=== PATIENT | male | born 1955 | race Caucasian/White ===

== ENCOUNTER 2019-02-09 08:11 | Day surgery (SDC) | payer BC ==
[~2019-02-09 08:11] MED LIST: Lactated Ringers 1,000 ML IV SCH; Lidocaine 1%/Sod Bicarbonate in NS 8.4% 1 ML Syringe IDERM PRN; Sodium Chloride 0.9% 10 ML Syringe FLUSH PRN
[2019-02-09] MEDS ORDERED: Triamcinolone Acetonide 40 MG/ML 1 ML MDV ONE (08:16)
[2019-02-09] MEDS ORDERED: Lidocaine 1% 30 ML SDV ONE (08:16)
--- NOTE | 2019-02-09 08:25 | PCM.PREANE ---
Preanesthetic Assessment - Anesthesia/Transfusion/Family Hx Anesthesia History: Prior Anesthesia Without Reaction Family History of Anesthesia Reaction: No Transfusion History: No Prior Transfusion(s) Intubation History: Unknown - Review of Systems General: No Symptoms Pulmonary: No Symptoms Cardiovascular: No Symptoms Gastrointestinal: No Symptoms Neurological: No Symptoms, Pre-Existing Deficit - Physical Assessment NPO Status Date: 02/08/19 NPO Status Time: 09:00 Height: 1.8 m Weight: 100.244 kg ASA Class: 2 Mental Status: Alert & Oriented x3 Airway Class: Mallampati = 3 Dentition: Reports: Missing Tooth/Teeth ROM/Head Extension: Full Lungs: Clear to Auscultation, Normal Respiratory Effort Cardiovascular: Regular Rate, Regular Rhythm, No Murmurs - Lab Values: Laboratory Last Values MRSA (PCR) Negative 01/20/19 10:14 - Allergies Allergies/Adverse Reactions: Allergies Allergy/AdvReac Type Severity Reaction Status Date / Time No Known Allergies Allergy Verified 10/04/15 18:32 - Blood Blood Available: No Product(s) Available: None - Anesthesia Plan Pre-Op Medication Ordered: None - Acknowledgements Anesthesia Type Planned: MAC Pt an Appropriate Candidate for the Planned Anesthesia: Yes Alternatives and Risks of Anesthesia Discussed w Pt/Guardian: Yes Pt/Guardian Understands and Agrees with Anesthesia Plan: Yes PreAnesthesia Questionnaire HEENT History: Reports: None Cardiovascular History: Reports: High Cholesterol, Other (See Below) Other Cardiovascular History: palpitations, orthostatic hypotension Respiratory History: Reports: Bronchitis, Recurrent Gastrointestinal History: Reports: None Genitourinary History: Reports: Renal Calculus SPECIAL EDUCATION ASSOCIATE History: Reports: None Musculoskeletal History: Reports: Arthritis, Other (See Below) Other Musculoskeletal History: carpal tunnel syndrome, elbow pain, lateral epicondylitis Neurological History: Reports: Other (See Below) Other Neuro History: dizziness Psychiatric History: Reports: None Endocrine/Metabolic History: Reports: Vitamin D Deficiency Hematologic History: Reports: None Immunologic History: Reports: None Oncologic (Cancer) History: Reports: None Dermatologic History: Reports: Other (See Below) Other Dermatologic History: lump in neck - Past Surgical History Head Surgeries/Procedures: Reports: None HEENT Surgical History: Reports: None Respiratory Surgical History: Reports: None GI Surgical History: Reports: None Female Surgical History: Reports: None Male Surgical History: Reports: None Endocrine Surgical History: Reports: None Musculoskeletal Surgical History: Reports: Arthroscopic Knee, Arthroscopic Procedure Oncologic Surgical History: Reports: None Dermatological Surgical History: Reports: None - SUBSTANCE USE Smoking Status *Q: Current Every Day Smoker Tobacco Use Within Last Twelve Months: Snuff/Dip Recreational Drug Use History: No - HOME MEDS Home Medications: Home Meds Ketorolac [Toradol] 10 mg PO Q8H #9 tablet 10/04/15 [Rx] Ondansetron [Zofran ODT] 4 mg PO Q6H PRN #10 tab.dis 10/04/15 [Rx] Tamsulosin [Flomax] 0.4 mg PO ONETIME #7 cap.er 10/04/15 [Rx] oxyCODONE HCl/Acetaminophen [Percocet 5-325 mg Tablet] 1 - 2 each PO Q6H #20 tablet 10/04/15 [Rx] - CURRENT (IN HOUSE) MEDS Current Meds: Current Medications Lactated Ringer's (Ringers, Lactated) 1,000 mls @ 125 mls/hr IV ASDIRECTED JOSE JUAN Stop: 02/09/19 23:00 Lidocaine/Sodium Bicarbonate (Buffered Lidocaine 1% In Ns 8.4%) 0.25 ml IDERM ONETIME PRN PRN Reason: Prior to IV Start Stop: 02/09/19 23:00 Sodium Chloride (Saline Flush) 10 ml FLUSH ASDIRECTED PRN PRN Reason: Keep Vein Open Stop: 02/09/19 23:00 Discontinued Medications Bupivacaine HCl (Sensorcaine-Mpf 0.25%) Confirm Administered Dose 20 ml .ROUTE .STK-MED ONE Stop: 02/09/19 08:17 Lidocaine HCl (Xylocaine-Mpf 1%) Confirm Administered Dose 30 ml .ROUTE .STK- MED ONE Stop: 02/09/19 08:17 Triamcinolone Acetonide (Kenalog-40) Confirm Administered Dose 40 mg .ROUTE .STK -MED ONE Stop: 02/09/19 08:17
[2019-02-09] MEDS ORDERED: Midazolam 1 MG/ML 2 ML SDV ONE ×2 (08:51)
[2019-02-09] MEDS ORDERED: fentaNYL 100 MCG/2 ML SDV ONE (08:53)
[2019-02-09] MEDS ORDERED: Propofol 200 MG/20 ML SDV ONE (08:54)
[2019-02-09] MEDS: Bupivacaine 0.25% 10 ML SDV ONE ×2 (09:02→09:15)
[2019-02-09 09:04] VITALS: BP 120/80
--- NOTE | 2019-02-09 09:27 | PCM48HPAN ---
Post Anesthesia Note - EVALUATION WITHIN 48HRS OF ANESTHETIC Vital Signs in Normal Range: Yes Patient Participated in Evaluation: Yes Respiratory Function Stable: Yes Airway Patent: Yes Cardiovascular Function Stable: Yes Hydration Status Stable: Yes Pain Control Satisfactory: Yes Nausea and Vomiting Control Satisfactory: Yes Mental Status Recovered: Yes Resp Rate: 16
--- NOTE | 2019-02-09 09:27 | PCM.POSTAN ---
POST ANESTHESIA ASSESSMENT - MENTAL STATUS Mental Status: Alert - RESPIRATORY Respiratory Status: Respiratory Rate WNL, Airway Patent, O2 Saturation Stable, Supplemental Oxygen - CARDIOVASCULAR CV Status: Pulse Rate WNL, Blood Pressure Stable - GASTROINTESTINAL GI Status: No Symptoms - POST OP HYDRATION Hydration Status: Adequate & Stable
--- NOTE | 2019-02-13 17:07 | PCM.OPNOTE ---
- General Post-Op/Procedure Note Date of Surgery/Procedure: 02/09/19 Operative Procedure(s): left carpal tunnel release with right carpal tunnel injection Pre Op Diagnosis: bilateral median nerve compression neuropathy Post-Op Diagnosis: Same Anesthesia Technique: Local, MAC Primary Surgeon: Ryan Pickens Anesthesia Provider: David Ramirez Regional Sales Trainer: Yvetet Powers EBL in mLs: 5 Complications: None Condition: Good
--- NOTE | 2019-02-14 11:14 | OR ---
DATE OF OPERATION: 02/09/2019 SURGEON: Ryan Pickens MD OPERATION PERFORMED: Left carpal tunnel release with right carpal tunnel injection. PREOPERATIVE DIAGNOSIS: Bilateral median nerve compression neuropathy. POSTOPERATIVE DIAGNOSIS: Bilateral median nerve compression neuropathy. ANESTHESIA: Local MAC. ANESTHESIA PROVIDER: David Ramirez CRNA. [employer]BESTOS SIDING MECHANIC: Yvette Powers PA-C. ESTIMATED BLOOD LOSS: Less than 5 mL. COMPLICATIONS: None. CONDITION: Stable. DESCRIPTION OF PROCEDURE: The patient was identified in the preop holding area. Proper site was marked and identified by the surgeon. The patient was taken back to the operating theater where after adequate anesthesia, the patient's left upper extremity was sterilely prepped and draped in the usual sterile fashion. OR time-out was performed. The patient did not receive antibiotics and it is not indicated for soft tissue hand procedure. At this time, the left upper extremity was exsanguinated and an Esmarch was used as a tourniquet on the forearm. At this time, using 1% lidocaine without epinephrine and 0.25% Marcaine without epinephrine, the palmar cutaneous branch of the median nerve was anesthetized and then the incisional site was anesthetized using [place] cardinal line and ulnar border of the fourth digit as reference. Once this had set up, an incision was made. Blunt dissection was taken down to the palmar cutaneous fascia. Palmar cutaneous fascia was incised with a [place] blade. At this time, the transverse carpal ligament was identified. A small rent was made in the transverse carpal ligament with a [place] blade under direct visualization. Resection of the transverse carpal ligament was done distally using tenotomy scissors making sure to stop short of the palmar arch. At this time, attention was turned proximally after it was found to be adequately released. Using the tenotomy scissors keeping the tips ulnar to protect the palmar cutaneous branch of the median nerve, the superficial forearm fascia as well as the transverse carpal ligament were resected proximally. It was found to be adequate release both proximally and distally. At this time, adequate saline was irrigated through the wound. 4-0 nylon sutures were used closure of the skin. The patient was placed in a sterile soft dressing and sent to PACU in stable condition. After this was completed, under sterile technique, 1 mL of 40 mg of Kenalog and 2 mL of 0.25% Marcaine were injected at the right carpal tunnel. The patient tolerated both procedures well. TIESHA /[id number]
== END 2019-02-09 09:50 | disposition home or self-care (01) ==
LOC: JD.SDS 08:11
PROVIDERS: ATTEND Orthopaedic Surgery
DX: G56.03 Carpal tunnel syndrome, bilateral upper limbs (principal); E78.00 Pure hypercholesterolemia, unspecified; E78.5 Hyperlipidemia, unspecified; E55.9 Vitamin D deficiency, unspecified; R73.03 Prediabetes; R00.2 Palpitations; F17.220 Nicotine dependence, chewing tobacco, uncomplicated; Z87.442 Personal history of urinary calculi
CPT/HCPCS: 64721; 87641; J2001; J2250; J2704; J3010; J3301; J3490; J7120; 01810

== ENCOUNTER 2020-09-02 09:17 | Day surgery (SDC) | payer BC ==
--- NOTE | 2020-09-01 17:20 | PCM.PREANE ---
Preanesthetic Assessment - Procedure Proposed Procedure: Right CTR and Right knee steroid injection. - Anesthesia/Transfusion/Family Hx Anesthesia History: Prior Anesthesia Without Reaction Family History of Anesthesia Reaction: No Transfusion History: No Prior Transfusion(s) Intubation History: Unknown - Review of Systems General: No Symptoms Pulmonary: No Symptoms (Chew: yesterday @ 1900), Cough (dry cough) Cardiovascular: No Symptoms (Elevated cholesterol,) Gastrointestinal: No Symptoms (Gastritis) Neurological: No Symptoms, Numbness, Tingling (Right hand CTS) Other: Reports: Sinus Problem (seasonal allergies), Depression, Anxiety - Physical Assessment NPO Status Date: 09/01/20 NPO Status Time: 22:00 Vital Signs: HR:69 Sat:96% Temp:97 B/P:122/81 Resp:16 Height: 1.8 m Weight: 107.048 kg ASA Class: 2 Mental Status: Alert & Oriented x3 Airway Class: Mallampati = 2 Dentition: Reports: Normal Dentition, Broken Tooth/Teeth, Missing Tooth/Teeth, Caries Thyro-Mental Finger Breadths: 3 Mouth Opening Finger Breadths: 3 ROM/Head Extension: Full Lungs: Clear to Auscultation, Normal Respiratory Effort Cardiovascular: Regular Rate, Regular Rhythm, No Murmurs - Lab Values: Laboratory Last Values MRSA (PCR) Negative 08/29/20 10:10 All labs reviewed and noted and within acceptable ranges to proceed with scheduled procedure. - Allergies Allergies/Adverse Reactions: Allergies Allergy/AdvReac Type Severity Reaction Status Date / Time No Known Allergies Allergy Verified 08/30/20 14:07 - Anesthesia Plan Pre-Op Medication Ordered: None - Acknowledgements Anesthesia Type Planned: MAC Pt an Appropriate Candidate for the Planned Anesthesia: Yes Alternatives and Risks of Anesthesia Discussed w Pt/Guardian: Yes Pt/Guardian Understands and Agrees with Anesthesia Plan: Yes PreAnesthesia Questionnaire HEENT History: Reports: None Cardiovascular History: Reports: High Cholesterol Other Cardiovascular History: palpitations, orthostatic hypotension Respiratory History: Reports: None Gastrointestinal History: Reports: None, Gastritis Genitourinary History: Reports: Renal Calculus MEAT SPECIALIST History: Reports: None Musculoskeletal History: Reports: Arthritis, Other (See Below) Other Musculoskeletal History: carpal tunnel syndrome, elbow pain, lateral epicondylitis Neurological History: Reports: None Other Neuro History: dizziness Psychiatric History: Reports: None, Anxiety, Depression Endocrine/Metabolic History: Other Endocrine/Metabolic History: pre diabetic Hematologic History: Reports: None Other Hematologic History: vitamin d insufficiency Immunologic History: Reports: None Oncologic (Cancer) History: Reports: None Dermatologic History: Reports: Other (See Below) Other Dermatologic History: lump in neck - Past Surgical History Head Surgeries/Procedures: Reports: None HEENT Surgical History: Reports: None Respiratory Surgical History: Reports: None GI Surgical History: Reports: None Female Surgical History: Reports: None Male Surgical History: Reports: None Endocrine Surgical History: Reports: None Musculoskeletal Surgical History: Reports: Arthroscopic Procedure Oncologic Surgical History: Reports: None Dermatological Surgical History: Reports: None - SUBSTANCE USE Tobacco Use Status *Q: Never Tobacco User Recreational Drug Use History: No - HOME MEDS Home Medications: Home Meds Multivitamin [Daily Multiple Vitamin] 1 tab PO DAILY 02/09/19 [History] Simvastatin [Zocor] 40 mg PO BEDTIME 02/09/19 [History] Acetaminophen [Tylenol] 325 mg PO 08/30/20 [History] Acetaminophen/HYDROcodone [[place] 325-5 MG] 1 - 2 tab PO Q6H PRN #10 tablet 08/30/20 [Rx] Celecoxib 08/30/20 [History] Cholecalciferol (Vitamin D3) [Vitamin D3] 08/30/20 [History] Escitalopram Oxalate [Lexapro] 10 mg PO 08/30/20 [History] Omeprazole 40 mg PO 08/30/20 [History] - CURRENT (IN HOUSE) MEDS Current Meds: Current Medications Lactated Ringer's (Ringers, Lactated) 1,000 mls @ 125 mls/hr IV ASDIRECTED JOSE JUAN Stop: 09/02/20 23:00 Lidocaine/Sodium Bicarbonate (Buffered Lidocaine 1% In Ns 8.4%) 0.25 ml IDERM ONETIME PRN PRN Reason: Prior to IV Start Stop: 09/02/20 18:00 Sodium Chloride (Saline Flush) 10 ml FLUSH ASDIRECTED PRN PRN Reason: Keep Vein Open Stop: 09/02/20 18:00
[~2020-09-02 09:17] MED LIST changes: +Lidocaine 1% 4 ML ONE; +Ondansetron 4 MG/2 ML SDV ONE; +Propofol 200 MG/20 ML SDV ONE; +fentaNYL 100 MCG/2 ML SDV ONE
[2020-09-02] MEDS ORDERED: Triamcinolone Acetonide 40 MG/ML 1 ML SDV ONE (10:17)
[2020-09-02] MEDS ORDERED: Bupivacaine 0.25% 10 ML SDV ONE ×2 (10:18→11:43)
[2020-09-02] MEDS ORDERED: Lidocaine 1% 30 ML SDV ONE ×2 (10:18→11:43)
[2020-09-02] MEDS ORDERED: Lidocaine 1% 6 ML ONE (10:19)
[2020-09-02] MEDS ORDERED: diphenhydrAMINE 50 MG/ML SDV IVPUSH PRN (11:40)
[2020-09-02] MEDS ORDERED: HYDROmorphone 0.5 MG/0.5 ML Syringe IVPUSH PRN (11:40)
[2020-09-02] MEDS ORDERED: fentaNYL 100 MCG/2 ML SDV IVPUSH PRN (11:40)
[2020-09-02] MEDS ORDERED: Lactated Ringers 1,000 ML ONE (11:41)
--- NOTE | 2020-09-02 12:03 | PCM48HPAN ---
Post Anesthesia Note - EVALUATION WITHIN 48HRS OF ANESTHETIC Vital Signs in Normal Range: Yes Patient Participated in Evaluation: Yes Respiratory Function Stable: Yes Airway Patent: Yes Cardiovascular Function Stable: Yes Hydration Status Stable: Yes Pain Control Satisfactory: Yes Nausea and Vomiting Control Satisfactory: Yes Mental Status Recovered: Yes Vital Signs: Last Vital Signs Temp 36.1 C 09/02/20 09:15 Pulse 69 09/02/20 09:15 Resp 16 09/02/20 09:15 BP 122/81 09/02/20 09:15 Pulse Ox 96 09/02/20 09:15
[2020-09-02 12:24] VITALS: BP 108/72; PULSE 64
--- NOTE | 2020-09-20 07:14 | PCM.OPNOTE ---
- General Post-Op/Procedure Note Date of Surgery/Procedure: 09/02/20 Operative Procedure(s): right carpal tunnel release with right knee steroid injection Pre Op Diagnosis: right median nerve compression neuropathy and right knee osteoarthrtis Post-Op Diagnosis: Same Anesthesia Technique: Local, MAC Primary Surgeon: Ryan Pickens Anesthesia Provider: Latoya Diego Instrument Assembly Supervisor: Yvette Powers EBL in mLs: 5 Complications: None Condition: Good
--- NOTE | 2020-09-20 07:34 | OR ---
DATE OF OPERATION: 09/02/2020 SURGEON: Ryan Pickens MD OPERATION PERFORMED: Right carpal tunnel release with right knee steroid injection. PREOPERATIVE DIAGNOSIS: Right median nerve compression neuropathy and right knee osteoarthritis. POSTOPERATIVE DIAGNOSIS: Right median nerve compression neuropathy and right knee osteoarthritis. ANESTHESIA: Local MAC. ANESTHESIA PROVIDER: Latoay Diego CRNA CARPENTER/LABOR: Yvette Powers PA-C ESTIMATED BLOOD LOSS: Less than 5 mL. COMPLICATIONS: None. CONDITION: Stable. DESCRIPTION OF PROCEDURE: The patient was identified in the preop holding area. Proper site was marked and identified by the surgeon. The patient was taken back to the operating theater where after adequate anesthesia, the patient's right upper extremity was sterilely prepped and draped in the usual sterile fashion. OR time-out was performed. The patient did not receive antibiotics and it is not indicated for soft tissue hand procedure. At this time, the right upper extremity was exsanguinated and an Esmarch was used as a tourniquet on the forearm. At this time, using 1% lidocaine without epinephrine and 0.25% Marcaine without epinephrine, the palmar cutaneous branch of the median nerve was anesthetized and then the incisional site was anesthetized using [place] cardinal line and ulnar border of the fourth digit as reference. Once this had set up, an incision was made. Blunt dissection was taken down to the palmar cutaneous fascia. Palmar cutaneous fascia was incised with a [place] blade. At this time, the transverse carpal ligament was identified. A small rent was made in the transverse carpal ligament with a [place] blade under direct visualization. Resection of the transverse carpal ligament was done distally using tenotomy scissors making sure to stop short of the palmar arch. At this time, attention was turned proximally after it was found to be adequately released. Using the tenotomy scissors keeping the tips ulnar to protect the palmar cutaneous branch of the median nerve, the superficial forearm fascia as well as the transverse carpal ligament were resected proximally. It was found to be adequate release both proximally and distally. At this time, adequate saline was irrigated through the wound. 4-0 nylon sutures were used closure of the skin. The patient was placed in a sterile soft dressing and sent to PACU in stable condition. After this was completed, under sterile technique, 2 mL of 40 mg Kenalog and 4 mL of 0.25% Marcaine were injected to the patient's right knee. The patient tolerated all procedures well. MMJANN /[id number]
== END 2020-09-02 12:50 | disposition home or self-care (01) ==
LOC: JD.SDS 09:17
PROVIDERS: ATTEND Orthopaedic Surgery
DX: G56.11 Other lesions of median nerve, right upper limb (principal); M17.11 Unilateral primary osteoarthritis, right knee; G56.00 Carpal tunnel syndrome, unspecified upper limb; F41.9 Anxiety disorder, unspecified; F32.9 Major depressive disorder, single episode, unspecified; R37 Sexual dysfunction, unspecified; E78.00 Pure hypercholesterolemia, unspecified; E55.9 Vitamin D deficiency, unspecified; Z79.899 Other long term (current) drug therapy; Z98.890 Other specified postprocedural states; Z87.891 Personal history of nicotine dependence
CPT/HCPCS: 20610; 64721; 87641; J2001; J2405; J2704; J3010; J3301; J3490; J7120; 01810

== ENCOUNTER 2022-06-30 09:43 | Emergency (ER) | payer BC, MEDICARE ==
[2022-06-30] MEDS ORDERED: Sodium Chloride 0.9% 10 ML Syringe FLUSH PRN ×2 (10:04→13:07)
[2022-06-30] MEDS ORDERED: Sodium Chloride 0.9% 1,000 ML IV ONE (12:23)
[2022-06-30] MEDS ORDERED: Iopamidol 755 Mg/ML 100 ML Bottle IVPUSH ONE (13:07)
[2022-06-30] MEDS ORDERED: Sodium Chloride 0.9% 45 ML IV SCH (13:15)
[2022-06-30 14:21] VITALS: BP 124/91; PULSE 62
== END 2022-06-30 14:10 | disposition home or self-care (01) ==
LOC: JD.ED 09:43
DX: I26.99 Other pulmonary embolism without acute cor pulmonale (principal); E78.00 Pure hypercholesterolemia, unspecified; I10 Essential (primary) hypertension; Z79.899 Other long term (current) drug therapy
CPT/HCPCS: 36415; 71045; 71275; 80053; 83735; 83880; 84484; 85025; 85379; 85610; 85730; 93005; 96360; 99285; J3490; J7030; Q9967; 93010; 99284